=== PATIENT | female | born 1990 | race Native Hawaiian/Other Pacific Islander ===

== ENCOUNTER 2021-02-28 08:01 | Inpatient (IN) | payer OTHER ==
[2021-02-28] MEDS ORDERED: LACTATED RINGERS 1,000 ML ONE (09:13)
[2021-02-28] MEDS ORDERED: CARBOPROST TROMETHAMINE 250 MCG/1 ML INJ IM PRN (09:32)
[2021-02-28] MEDS ORDERED: OXYTOCIN 10 UNIT/1 ML INJ IM PRN (09:32)
[2021-02-28] MEDS ORDERED: miSOPROStol 200 MCG TAB PR PRN (09:32)
[2021-02-28] MEDS ORDERED: LOPERAMIDE 2 MG CAP PO PRN (09:32)
[2021-02-28] MEDS ORDERED: MINERAL OIL 30 ML ORAL LIQD PO PRN (09:32)
[2021-02-28] MEDS ORDERED: ePHEDrine SULFATE 50 MG/1 ML INJ IV PRN (09:32)
[2021-02-28] MEDS ORDERED: METHYLERGONOVINE MALEATE 0.2 MG/ML VIAL IM PRN (09:32)
[2021-02-28] MEDS ORDERED: LIDOCAINE (2%) 20 MG/1 ML VIAL 20 ML MDV INFILTRATI ONE (09:32)
[2021-02-28] MEDS ORDERED: TERBUTALINE 1 MG/1 ML INJ SUB-Q PRN (09:32)
[2021-02-28] MEDS ORDERED: LACTATED RINGERS 1,000 ML IV SCH (09:45)
[2021-02-28 09:52] LABS: Hematocrit 39.4 % (30.3-42.9); Hemoglobin 13.6 gm/dl (10.1-14.3); Mean Corpuscular HGB Conc 35 % (30-34); Mean Corpuscular Volume 98 fl (79-97); Platelet Count 191 K/mm3 (140-440); Red Blood Count 4.02 M/mm3 (3.65-5.03); Red Cell Distribution Width 13.5 % (13.2-15.2)
[2021-02-28] MEDS ORDERED: OXYTOCIN DRIP 30 UNITS/500 ML BAG IV SCH ×2 (10:00)
--- NOTE | 2021-02-28 10:24 | History and Physical Report ---
History of Present Illness Date of examination: 02/28/21 Date of admission: 02/28/21 Chief complaint: active labor, TOLAC Past History Past Surgical History: section - Obstetrical History Expected Date of Delivery: 03/05/21 Actual Gestation: 39 Week(s) 2 Day(s) : 4 Para: 2 Medications and Allergies Allergies Allergy/AdvReac Type Severity Reaction Status Date / Time No Known Allergies Allergy Verified 02/28/21 09:35 Active Meds: Active Medications Carboprost Tromethamine (Carboprost Tromethamine 250 Mcg/1 Ml Inj) 250 mcg IM ONCE PRN PRN Reason: Uterine Bleeding Ephedrine Sulfate (Ephedrine Sulfate 50 Mg/1 Ml Inj) 10 mg IV Q2M PRN PRN Reason: Hypotension Oxytocin/Sodium Chloride (Pitocin/Ns 30 Unit/500ml) 30 units in 500 mls @ 2 mls /hr IV TITR JEAN CARLOS; Protocol Lactated Ringer's (Lactated Ringers) 1,000 mls @ 125 mls/hr IV DIRECT JEAN CARLOS Oxytocin/Sodium Chloride (Pitocin/Ns 30 Unit/500ml) 30 units in 500 mls @ 40 mls/hr IV TITR JEAN CARLOS; Protocol Loperamide HCl (Loperamide 2 Mg Cap) 2 mg PO ONCE PRN PRN Reason: give with Hemabate Methylergonovine Maleate (Methylergonovine Maleate 0.2 Mg/Ml Vial) 0.2 mg IM ONCE PRN PRN Reason: Uterine Bleeding Mineral Oil (Mineral Oil 30 Ml Oral Liqd) 30 ml PO QHS PRN PRN Reason: Constipation Misoprostol (Misoprostol 200 Mcg Tab) 800 mcg [place] ONCE PRN PRN Reason: Uterine Bleeding Oxytocin (Oxytocin 10 Unit/1 Ml Inj) 10 unit IM ONCE PRN PRN Reason: Uterine Bleeding Terbutaline Sulfate (Terbutaline 1 Mg/1 Ml Inj) 0.25 mg SUB-Q ONCE PRN PRN Reason: Hyperstimulation/Hypertonicity - Vital Signs Vital signs: Vital Signs Pulse Pulse Ox 98 H 100 02/28/21 08:43 02/28/21 08:43 Temp Pulse Resp BP Pulse Ox 83 132/63 99 02/28/21 10:17 02/28/21 10:17 02/28/21 10:17 - Physical Exam Breasts: Positive: deferred Cardiovascular: Regular rate Abdomen: Positive: normal appearance, soft, normal bowel sounds Uterus: Positive: enlarged Deep Tendon Reflex Grade: Normal +2 - Obstetrical FHR: category 1 Cervical Dilatation: 7 Results Result Diagrams: 02/28/21 09:10 Abnormal lab results 02/28/21 Range/Units 09:10 WBC 14.1 H (4.5-11.0) K/mm3 MCV 98 H (79-97) fl MCH 34 H (28-32) pg MCHC 35 H (30-34) % All other labs normal. Assessment and Plan admit cfm expect ANGIE Cohn MD
--- NOTE | 2021-02-28 10:28 | Procedure Note ---
OB Delivery Note - Delivery Date of Delivery: 02/28/21 Surgeon: RONNELL BARAJAS Estimated blood loss: other (250ml) - Vaginal Delivery position: OA Intrapartum events: none Delivery induction: none Delivery monitor: external FHT, external uterine Route of delivery: Delivery cord: 3 umbilical vessels Episiotomy: none Delivery laceration: none Delivery comments: Patient pushed to deliver a viable female over an intact perineum with weight 3960gms and 9/9. Position LYNNETTE, loose nuchal cord reduced after delivery. Spontaneous cry at delivery. Delivery of the anterior shoulder atraumatic, remainder of delivery uncomplicated. Cord clamped cut and baby handed to waiting PACO team. Spontaneous delivery of an intact placenta with three-vessel cord. Inspection of the perineum cervix and vagina revealed no lacerations. Firm fundus, EBL 250. All sponge needle and instrument counts correct x2. Mom and baby stable to . Freddy Barajas MD
[2021-02-28] MEDS ORDERED: PROMETHAZINE 25 MG TAB PO PRN (13:19)
[2021-02-28] MEDS ORDERED: HYDROcodone/ACETAMINOPHEN 5-325 MG TAB PO PRN (13:19)
[2021-02-28] MEDS ORDERED: diphenhydrAMINE 25 MG CAP PO PRN (13:19)
[2021-02-28] MEDS ORDERED: KETOROLAC 30 MG/1 ML INJ IV PRN (13:19)
[2021-02-28] MEDS ORDERED: WITCH HAZEL/ GLYCERIN PAD TP PRN (13:19)
[2021-02-28] MEDS ORDERED: ONDANSETRON 4 MG/2 ML INJ IV PRN (13:19)
[2021-02-28] MEDS ORDERED: LANOLIN/ZINC/DIMETHICONE (LANSINOH) 7 GM TP PRN (13:19)
[2021-02-28] MEDS ORDERED: MAGNESIUM HYDROXIDE (MOM) ORAL LIQD UDC PO PRN (13:19)
[2021-02-28] MEDS ORDERED: ACETAMINOPHEN 325 MG TAB PO PRN (13:19)
[2021-02-28] MEDS ORDERED: PROMETHAZINE 25 MG RECT SUPP PR PRN (13:19)
[2021-02-28] MEDS: IBUPROFEN 600 MG TAB PO SCH ×2 (14:57→17:41)
[2021-03-01] MEDS: IBUPROFEN 600 MG TAB PO SCH ×2 (00:10→05:56)
[2021-03-01 01:40] LABS: Hemoglobin 11.6 gm/dl (10.1-14.3)
[2021-03-01 01:48] LABS: Hematocrit 33.8 % (30.3-42.9)
[2021-03-01 08:11] VITALS: BP 115/74
--- NOTE | 2021-03-01 09:58 | Discharge Summary ---
Providers - Providers Date of Admission: 02/28/21 09:32 Date of discharge: 03/01/21 Attending physician: RONNELL BARAJAS MD Primary care physician: NET [employer]ELOPER Hospitalization Reason for admission: active labor Delivery: Episiotomy: none Laceration: none Other procedures: none complications: none Discharge diagnosis: IUP at term delivered baby: female Hospital course: Pt was admitted in active labor and had a w/o pp complications. See H&P, delivery summary and pp notes. Condition at discharge: Stable Disposition: DC-01 TO HOME OR SELFCARE Plan - Provider Discharge Summary Activity: routine, no sex for 6 weeks, no heavy lifting 4 weeks, no strenuous exercise Diet: routine Instructions: routine Additional instructions: [] Smoking cessation referral if applicable(refer to patient education folder for contact #) [] Refer to [facility]'s [facility] Booklet Call your doctor immediately for: * Fever > 100.5 * Heavy vaginal bleeding ( >1 pad per hour) * Severe persistent headache * Shortness of breath * Reddened, hot, painful area to leg or breast * Drainage or odor from incision. * Keep incision clean and dry at all times and follow doctor's instructions regarding bathing/showering - Follow up plan Follow up: PRIMARY CARE, [Primary Care Provider] - 6 Weeks
== END 2021-03-01 13:00 | disposition home or self-care (01) | DRG 807 ==
LOC: TRG 08:01 → APU 08:03 → LD 09:08 → TRG 10:24 → OB 13:05
PROVIDERS: ADMIT Obstetrics & Gynecology; ATTEND Obstetrics & Gynecology
PROC: 10E0XZZ Delivery of Products of Conception, External Approach (ICD-10-PCS; principal; 2021-02-28)
DX: O80 Encounter for full-term uncomplicated delivery (principal); Z37.0 Single live birth; Z3A.39 39 weeks gestation of pregnancy; Z20.822 Contact with and (suspected) exposure to COVID-19
CPT/HCPCS: 36415; 59025; 85014; 85018; 85027; 86592; 86850; 86900; 86901; 99211; G0378; G0463; U0003